=== PATIENT | female | born 1990 | race Caucasian/White ===

== ENCOUNTER 2023-05-26 23:04 | Emergency (ER) | payer OTHER ==
[~2023-05-26] VITALS: Ht 157.5 cm; Wt 79.4 kg
[2023-05-26 23:15] VITALS: BP 118/52; PULSE 79; RESP 20; TEMP 98; O2SAT 95
--- NOTE | 2023-05-26 23:23 | NUR ---
PT WENT TO THE LOBBY
[2023-05-27] MEDS ORDERED: ONDANSETRON 4 MG ODT PO ONE (00:05)
[2023-05-27 00:24] LABS: BASOPHILS % (AUTO) 0.2 % (0.0-2.0); EOSINOPHILS # (AUTO) 0.1 K/uL (0-0.4); EOSINOPHILS % (AUTO) 0.7 % (0.0-4.0); HEMATOCRIT 38.3 % (36-48); LYMPHOCYTES # (AUTO) 1.3 K/uL (2.5-16.5); LYMPHOCYTES % (AUTO) 12.2 % (20.5-51.1); MEAN CORPUSCULAR HEMOGLOBIN 30 pg (27-31); MEAN CORPUSCULAR HGB CONC 34 g/dL (33-37); MEAN CORPUSCULAR VOLUME 87.8 fL (80-94); MONOCYTES # (AUTO) 0.6 K/uL (0.8-1.0); MONOCYTES % (AUTO) 5.2 % (1.7-9.3); NEUTROPHILS % (AUTO) 81.7 % (42.2-75.2); PLATELET COUNT (AUTO) 216 K/uL (140-450); RED BLOOD CELL COUNT(AUTO) 4.36 MIL/uL (4.20-5.40); RED CELL DISTRIBUTION WIDTH 14.4 % (11.6-13.7)
--- NOTE | 2023-05-27 00:27 | NUR ---
URINE WALKED TO LAB.
--- NOTE | 2023-05-27 00:34 | NUR ---
PT TO BED 09
[2023-05-27 00:39] LABS: ALBUMIN 3.8 g/dL (3.4-5.0); ANION GAP 11.2 (8-16); CARBON DIOXIDE 28.5 mmol/L (21-32); CREATININE 0.9 mg/dL (0.6-1.3); POTASSIUM 3.7 mmol/L (3.5-5.1); TOTAL BILIRUBIN 0.7 mg/dL (0.0-1.0)
--- NOTE | 2023-05-27 00:53 | NUR ---
Patient is a 33/F who came in due to nausea/vomiting associated with sharp epigastric pain, 8/10, radiating to both upper quadrants. Patient denies fever/chills, diarrhea or urinary symptoms. PMHx: MAGGY QUEVEDO
[2023-05-27] MEDS ORDERED: ACETAMINOPHEN EXTRA STRENGTH 500 MG TAB PO ONE (01:05)
[2023-05-27 02:10] VITALS: TEMP 98
--- NOTE | 2023-05-27 02:10 | NUR ---
US at bedside.
[2023-05-27] MEDS ORDERED: PNV91TAB10 PO (02:48)
[2023-05-27] MEDS ORDERED: FAMO-90 PO (02:48)
[2023-05-27] MEDS ORDERED: ACET-10509 PO (02:48)
[2023-05-27] MEDS ORDERED: DOXY1TCP PO (02:49)
--- NOTE | 2023-05-27 03:00 | NUR ---
Patient discharged with v/s stable. Written and verbal after care instructions given and explained. Patient alert, oriented and verbalized understanding of instructions. Ambulatory with steady gait. All questions addressed prior to discharge. ID band removed. Patient advised to follow up with PMD. Rx of Tylenol, Diclegis, Pepcid and vitamins given. Patient educated on indication of medication including possible reaction and side effects. Opportunity to ask questions provided and answered.
[2023-05-27 03:01] VITALS: BP 111/77; PULSE 72; RESP 18; O2SAT 96
== END 2023-05-27 03:00 | disposition home or self-care (01) ==
LOC: MED 23:04
DX: O26.611 Liver and biliary tract disorders in pregnancy, first trimester (principal); K80.20 Calculus of gallbladder without cholecystitis without obstruction; O99.611 Diseases of the digestive system complicating pregnancy, first trimester; K21.9 Gastro-esophageal reflux disease without esophagitis; Z3A.01 Less than 8 weeks gestation of pregnancy; Z79.899 Other long term (current) drug therapy
CPT/HCPCS: 36415; 76705; 76801; 80053; 81002; 81025; 83690; 84702; 85025; 99284; Q0092; Q0162